=== PATIENT | female | born 1970 | race Caucasian/White ===

== ENCOUNTER 2017-07-02 12:58 | Observation (INO) ==
--- NOTE | 2017-07-02 13:34 | Emergency Department Report ---
Seizure HPI - General Chief Complaint: Seizure Stated Complaint: alchol tx Time Seen by Provider: 07/02/17 13:09 Source: patient, EMS Mode of arrival: EMS Limitations: no limitations - History of Present Illness HPI Narrative: Pt presents from rehab for alcohol dependance. Pt reports she has been drinking a pint plus beers daily for years. This is her first time to a rehab facility where she has been for 3 days. This morning staff walked into pts room to find her on the floor having convulsive like twitches. EMS reports pt did have a post ictal phase. Pt is alert and verbal appropriate on arrival and denies any history of seizures, street drug use or previous known withdrawal symptoms. She has no memory of the event or any activity just prior. MD complaint: possible seizure Onset (ago): minute(s) Description of Episode: tonic-clonic movement, post-event confusion Witnessed: yes - by other (rehab staff) Trauma: No Seizure History: none Place: other Possible Precipitating Event: alcohol withdrawal Associated symptoms: denies other symptoms - Related Data Home Medications Medication Instructions Recorded Confirmed Acetaminophen [Acetaminophen Extra 1,000 mg PO Q6H PRN 07/02/17 07/02/17 Strength] Fluoxetine HCl [Prozac] 40 mg PO DAILY 07/02/17 07/02/17 Gabapentin [Neurontin] 100 mg PO TID 07/02/17 07/02/17 Levothyroxine Sodium 100 mcg PO ACB 07/02/17 07/02/17 Metoprolol Tartrate 100 mg PO BID 07/02/17 07/02/17 Ondansetron HCl [Zofran] 4 mg PO Q4H PRN 07/02/17 07/02/17 Allergies Allergy/AdvReac Type Severity Reaction Status Date / Time Sulfa (Sulfonamide Allergy Mild Verified 07/02/17 13:12 Antibiotics) Review of Systems All systems: reviewed and negative except as stated Neurological: Reports: as per HPI Psychiatric: Reports: as per HPI PFSH Patient Stated Medical History Hypotension Yes Depression Yes Now No: pre menopause, lmp 3-4 months ago - Social History Smoking status: Current every day smoker Physical Exam - Limitations Limitations: no limitations - General General appearance: alert, in no apparent distress - Normal Exams: Head:: Normocephalic without trauma Eyes:: Pupils are PERRLA w/ EOMI Neck:: Full range of motion, without adenopathy Chest/Respirations:: Clear all zamudio, with good airflow, and symmetry bilaterally Cardiovascular:: Regular rate and rhythm, without murmur or gallop, Pulses 2+ all extremities, capillary refill, <2 seconds all extremities Abdomen:: Bowel sounds positive, soft, non-tender, non-distended Musculoskeletal:: No tenderness, or deformity noted, good range of motion, all extremities Integumentary:: No rashes Neurological:: Patient is alert, and oriented, cranial nerves, motor/sensory/ cerebellar, exams w/o gross deficits, to observation Psychiatric:: Patient exhibits, appropriate attention, emotion and affect Course Vital Signs Temperature 98.1 F 07/02/17 12:59 Pulse Rate 71 07/02/17 12:59 Respiratory Rate 22 07/02/17 12:59 Blood Pressure 184/106 H 07/02/17 12:59 Pulse Oximetry 98 07/02/17 12:59 Temperature 98.1 F 07/02/17 12:59 Pulse Rate 71 07/02/17 12:59 Respiratory Rate 22 07/02/17 12:59 Blood Pressure 184/106 H 07/02/17 12:59 Pulse Oximetry 98 07/02/17 12:59 Seizure - MDM Narrative Medical decision making narrative: Labs and CT results reviewed. Ct per Dr Medina with no acute findings. Dr Mesa notified of findings and pt status . Pt to be admitted observation and started on a withdrawal protocol. Pt notified of diagnostic results and plan. Pt is concerned her UDS was positive for meth. She denies any meth use and is concerned that there has been a mistake. Pt will contact [facility] to obtain belongings and hold bed. - Differential Diagnosis Likely: intractable seizure disorder, generalized seizure (alcohol withdrawal), new onset seizure - Lab Data Attestation: I reviewed the patient's lab results. Result diagrams: 07/02/17 13:21 07/02/17 13:21 Lab Results 07/02/17 07/02/17 07/02/17 Range/Units 13:21 13:21 14:05 WBC 6.5 (4.5-11.0) T/MM3 RBC 4.50 (4.00-5.20) M/MM3 Hgb 14.8 (12-16) GM/DL Hct 43.9 (36-46) % MCV 97.6 (80-100) UM3 MCH 32.9 (26-34) UUG MCHC 33.7 (31-37) GM/DL RDW Std Deviation 50.5 H (36.9-50.2) FL Plt Count 184 (130-400) T/MM3 MPV 11.3 (9.4-12.4) UM3 Immature Gran % (Auto) 0.3 (0.0-0.5) % Neut % (Auto) 55.8 (33-66) % Lymph % (Auto) 32.2 (23-45) % [place] % (Auto) 9.4 H (0-9.0) % Eos % (Auto) 1.7 (0-4) % Baso % (Auto) 0.6 (0-2) % Neut # (Auto) 3.6 (1.8-7.7) T/MM3 Lymph # (Auto) 2.1 (1-4.8) T/MM3 [place] # (Auto) 0.6 (0-0.8) T/MM3 Eos # (Auto) 0.1 (0-0.5) T/MM3 Baso # (Auto) 0.0 (0-0.2) T/MM3 Abs Immat Gran (auto) 0.02 (0.00-0.03) T/MM3 Turbidity < 20 (0-20) Sodium 139 (134-144) MEQ/L Potassium 2.9 L* (3.6-5) MEQ/L Chloride 101 (98-107) MEQ/L Carbon Dioxide 21 L (22-30) MEQ/L Anion Gap 17 H (5-15) MEQ/L BUN 5.0 L (7-17) MG/DL Creatinine 0.7 (0.7-1.2) MG/DL GFR Calculation 90 BUN/Creatinine Ratio 7 (6-26) RATIO Glucose 141 H (65-110) MG/DL Calculated Osmolality 267 (261-280) MOSM/KG Calcium 9.7 (8.4-10.2) MG/DL Total Bilirubin 0.40 (0.20-1.30) MG/DL Icterus Index < 2 (0-7) AST 66 H (14-36) U/L ALT 50 (9-52) U/L Alkaline Phosphatase 154 H (38-126) U/L Total Protein 8.2 (6.3-8.2) G/DL Albumin 4.9 (3.5-5.0) G/DL Globulin 3.3 (2.4-3.6) G/DL Albumin/Globulin Ratio 1.5 (1.1-2.2) RATIO Specimen Hemolysis < 15 (0-25) Ur Collection Type Urine, void-cc/notcc Urine Color Yellow (YELLOW) Urine Clarity Clear Urine pH 6.5 (5.0-8.0) Ur Specific Sullivan 1.010 L (1.015-1.025) Urine Protein Negative (NEGATIVE) Urine Glucose (UA) Negative (NEGATIVE) Urine Ketones Trace A (NEGATIVE) Urine Occult Blood Trace-intact (NEGATIVE) Urine Nitrate Negative (NEGATIVE) Urine Bilirubin Negative (NEGATIVE) Urine Urobilinogen 0.2 (NORMAL) EU/DL Ur Leukocyte Esterase Negative (NEGATIVE) Urinalysis Comment Microscopic not ind. Urine Opiates Screen ng/mL Ur Oxycodone Screen ng/mL Urine Methadone Screen ng/mL Ur Propoxyphene Screen ng/mL Ur Barbiturates Screen ng/mL U Tricyclic Antidepress ng/mL Ur Phencyclidine Scrn ng/mL Ur Amphetamines Screen ng/mL U Methamphetamines Scrn ng/mL U Benzodiazepines Scrn ng/mL Urine Cocaine Screen ng/mL U Cannabinoids Screen ng/mL Ur Drug Screen Confirm 07/02/17 07/02/17 Range/Units 14:05 14:05 WBC (4.5-11.0) T/MM3 RBC (4.00-5.20) M/MM3 Hgb (12-16) GM/DL Hct (36-46) % MCV (80-100) UM3 MCH (26-34) UUG MCHC (31-37) GM/DL RDW Std Deviation (36.9-50.2) FL Plt Count (130-400) T/MM3 MPV (9.4-12.4) UM3 Immature Gran % (Auto) (0.0-0.5) % Neut % (Auto) (33-66) % Lymph % (Auto) (23-45) % [place] % (Auto) (0-9.0) % Eos % (Auto) (0-4) % Baso % (Auto) (0-2) % Neut # (Auto) (1.8-7.7) T/MM3 Lymph # (Auto) (1-4.8) T/MM3 [place] # (Auto) (0-0.8) T/MM3 Eos # (Auto) (0-0.5) T/MM3 Baso # (Auto) (0-0.2) T/MM3 Abs Immat Gran (auto) (0.00-0.03) T/MM3 Turbidity (0-20) Sodium (134-144) MEQ/L Potassium (3.6-5) MEQ/L Chloride (98-107) MEQ/L Carbon Dioxide (22-30) MEQ/L Anion Gap (5-15) MEQ/L BUN (7-17) MG/DL Creatinine (0.7-1.2) MG/DL GFR Calculation BUN/Creatinine Ratio (6-26) RATIO Glucose (65-110) MG/DL Calculated Osmolality (261-280) MOSM/KG Calcium (8.4-10.2) MG/DL Total Bilirubin (0.20-1.30) MG/DL Icterus Index (0-7) AST (14-36) U/L ALT (9-52) U/L Alkaline Phosphatase (38-126) U/L Total Protein (6.3-8.2) G/DL Albumin (3.5-5.0) G/DL Globulin (2.4-3.6) G/DL Albumin/Globulin Ratio (1.1-2.2) RATIO Specimen Hemolysis (0-25) Ur Collection Type Urine Color (YELLOW) Urine Clarity Urine pH (5.0-8.0) Ur Specific Sullivan (1.015-1.025) Urine Protein (NEGATIVE) Urine Glucose (UA) (NEGATIVE) Urine Ketones (NEGATIVE) Urine Occult Blood (NEGATIVE) Urine Nitrate (NEGATIVE) Urine Bilirubin (NEGATIVE) Urine Urobilinogen (NORMAL) EU/DL Ur Leukocyte Esterase (NEGATIVE) Urinalysis Comment Urine Opiates Screen Negative ng/mL Ur Oxycodone Screen Negative ng/mL Urine Methadone Screen Negative ng/mL Ur Propoxyphene Screen Negative ng/mL Ur Barbiturates Screen Negative ng/mL U Tricyclic Antidepress Negative ng/mL Ur Phencyclidine Scrn Negative ng/mL Ur Amphetamines Screen Negative ng/mL U Methamphetamines Scrn Positive ng/mL U Benzodiazepines Scrn Positive ng/mL Urine Cocaine Screen Negative ng/mL U Cannabinoids Screen Negative ng/mL Ur Drug Screen Confirm Sent out - Radiology Data [facility] Radiology Attestation Statement: I reviewed the patient's radiology results. CT read per Dr Medina with no acute findings Disposition Clinical Impression: Alcohol withdrawal seizure Qualifiers: Complication of substance-induced condition: uncomplicated Qualified Code(s): F10.230 - Alcohol dependence with withdrawal, uncomplicated Benzodiazepine withdrawal Qualifiers: Complication of substance-induced condition: uncomplicated Qualified Code(s): F13.230 - Sedative, hypnotic or anxiolytic dependence with withdrawal, uncomplicated Disposition: [address] [facility] Condition: Improved Time of Disposition: 15:13 - Seen By: midlevel
--- OUTSIDE RECORDS SUMMARY | 2017-07-02 13:38 | External Medical Summary ---
:1970 Author Organization [facility] Address [address] [place] [address] Care Team Providers Name Role Phone Jesús Guzman Unavailable Unavailable PROBLEMS Type Condition ICD9-CM Code [id number] Code Onset Condition SNOMED Code Dates Status Problem Encounter for V58.69 Active 867649761 long-term (current) use of other medications Problem Other malaise and 780.79 Active 804995302 fatigue Problem Hyperlipidemia, 272.4 Active 86550801 Other and unspecified Problem Hypothyroidism, 244.9 Active 07199489 Unspecified Problem Bronchitis J40 Active 74332482 Problem Primary insomnia F51.01 Active 4058806 Problem Hypertension 401.9 Active 75336300 Problem Abdominal pain, 789.00 Active 63174086 unspecified site Problem Hormone imbalance 259.9 Active 016526476 Problem Palpitations 785.1 Active 71349570 ALLERGIES Unknown Allergies SOCIAL HISTORY No smoking Hx information available PLAN OF CARE VITAL SIGNS MEDICATIONS Medication Instructions Dosage Frequency Start Date End Date Duration Status Metoprolol 1 tablet 12h 30 days Active Tartrate 50 with food RESULTS No Results PROCEDURES No Known procedures IMMUNIZATIONS No Known Immunizations
--- OUTSIDE RECORDS SUMMARY | 2017-07-02 13:38 | External Medical Summary ---
:1970 Author Organization [employer] Care Team Providers Name Role Phone Jesús Guzman Provider Role Unavailable Allergies No Known Allergies Problems Problem Type Condition Code Onset Dates Condition Status Problem Hypothyroidism, Unspecified 244.9 Active Problem Palpitations 785.1 Active Problem Hypertension 401.9 Active Problem Hormone imbalance 259.9 Active Problem Hyperlipidemia, Other and 272.4 Active unspecified Problem Encounter for long-term (current) V58.69 Active use of other medications Problem Abdominal pain, unspecified site 789.00 Active Problem Other malaise and fatigue 780.79 Active Medications Medication Code System Code Instructions Start Date End Date Status Dosage Xanax [facility] [address] 0.25 MG Orally September 01 tablet -01 Twice a day 2013 Results No Known Results Summary Purpose eClinicalWorks Submission
--- OUTSIDE RECORDS SUMMARY | 2017-07-02 13:38 | External Medical Summary ---
:1970 Author Organization [employer] Care Team Providers Name Role Phone Jesús Guzman Provider Role Unavailable Allergies No Known Allergies Problems Problem Type Condition ICD-9 Code Onset Dates Condition Status Problem Hypertension 401.9 Active Problem Abdominal pain, unspecified site 789.00 Active Problem Palpitations 785.1 Active Problem Encounter for long-term V58.69 Active (current) use of other medications Problem Hypothyroidism, Unspecified 244.9 Active Problem Other malaise and fatigue 780.79 Active Problem Hyperlipidemia, Other and 272.4 Active unspecified Medications Medication Code System Code Instructions Start Date End Date Status Dosage Xanax [facility] [address] 0.25 MG Orally September 01, Active 1 tablet -01 Twice a day 2013 Results No Known Results Summary Purpose eClinicalWorks Submission
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
--- OUTSIDE RECORDS SUMMARY | 2017-07-02 13:38 | External Medical Summary ---
:1970 Author Organization [employer] Care Team Providers Name Role Phone Jesús Guzman Provider Role Unavailable Allergies No Known Allergies Problems Problem Type Condition Code Onset Dates Condition Status Assessment Sinusitis, unspecified 461.9 Active Problem Hypertension 401.9 Active Problem Abdominal pain, unspecified site 789.00 Active Problem Palpitations 785.1 Active Problem Encounter for long-term (current) V58.69 Active use of other medications Problem Hypothyroidism, Unspecified 244.9 Active Problem Other malaise and fatigue 780.79 Active Problem Hyperlipidemia, Other and 272.4 Active unspecified Medications Medication Code Code Instructions Start End Date Status Dosage System Date Ciprofloxacin HCl [facility] 37607-29 500 MG Orally December 17 tablet 37-01 every 12 hrs 2012 Results No Known Results Summary Purpose eClinicalWorks Submission
--- OUTSIDE RECORDS SUMMARY | 2017-07-02 13:38 | External Medical Summary ---
:1970 Author Organization [employer] Care Team Providers Name Role Phone Jesús Guzman Provider Role Unavailable Allergies, Adverse Reactions, Alerts Substance Reaction Event Type Sulfa hives Drug Allergy Problems Problem Type Condition ICD-9 Code Onset Dates Condition Status Assessment Hypothyroidism, Unspecified 244.9 Active Problem Hypothyroidism, Unspecified 244.9 Active Assessment Adult Wellness Exam V70.0 Active Assessment Hormone imbalance 259.9 Active Assessment Hypertension 401.9 Active Problem Palpitations 785.1 Active Problem Hypertension 401.9 Active Problem Hormone imbalance 259.9 Active Problem Hyperlipidemia, Other and 272.4 Active unspecified Problem Encounter for long-term V58.69 Active (current) use of other medications Problem Abdominal pain, unspecified site 789.00 Active Problem Other malaise and fatigue 780.79 Active Medications Medication Code Code Instructions Start End Status Dosage System Date Date Metoprolol [facility] 88058362601 50 Orally bid 1 TABLET Tartrate Levothyroxine [facility] 50608374590 100 TAKE ONE Sodium TABLET BY MOUTH EVERY DAY Xanax [facility] [address]-94 0.25 MG Orally [place] 1 tablet Twice a day 2013 Citalopram [facility] 75526473342 40 TAKE ONE Hydrobromide TABLET BY MOUTH EVERY DAY Procedures Procedure Coding System Code Date TSH CPT-4 96730 Jan 09, 2015 CBC CPT-4 25348 Jan 09, 2015 T4 CPT-4 21388 Jan 09, 2015 OFFICE VISITEST PT CPT-4 04765 Jan 09, 2015 FSH CPT-4 95016 Jan 09, 2015 LIPID PROFILE CPT-4 67393 Jan 09, 2015 COMP PROFILE CPT-4 15040 Jan 09, 2015 ESTRADIOL CPT-4 07992 Jan 09, 2015 URINALYSIS CPT-4 26559 Jan 09, 2015 Vital Signs Date/Time: Jan 09, 2015 Blood Pressure Systolic 120 mm Hg Height 62.2 in Weight 139 lbs BMI 25.26 Index Blood Pressure Diastolic 74 mm Hg Results Name Result Date Reference Range Unit Abnormality Flag CBC Summary Purpose eClinicalWorks Submission
--- OUTSIDE RECORDS SUMMARY | 2017-07-02 13:38 | External Medical Summary ---
:1970 Author Organization [facility] Address [address] [place] [address] Care Team Providers Name Role Phone Corrineyolanda Jesús Unavailable Unavailable PROBLEMS Type Condition ICD9-CM Code JYU26-NO Onset Condition SNOMED Code Code Dates Status Problem Generalized R10.84 Active 720879682 abdominal pain Problem Acquired E03.9 Active 386189348 hypothyroidism Problem Dysmenorrhea N94.6 Active 669285642 Problem Other fatigue R53.83 Active 14897902 Problem Palpitations R00.2 Active 71080956 Problem Essential I10 Active 02373382 hypertension Problem Bronchitis J40 Active 02184653 Problem Primary insomnia F51.01 Active 0329484 ALLERGIES Unknown Allergies SOCIAL HISTORY No smoking Hx information available PLAN OF CARE VITAL SIGNS MEDICATIONS Unknown Medications RESULTS No Results PROCEDURES No Known procedures IMMUNIZATIONS No Known Immunizations
--- OUTSIDE RECORDS SUMMARY | 2017-07-02 13:38 | External Medical Summary ---
:1970 Author Organization [employer] Care Team Providers Name Role Phone Jesús Guzman Provider Role Unavailable Allergies No Known Allergies Problems Problem Type Condition ICD-9 Code Onset Dates Condition Status Problem Hypothyroidism, [...] Start Date End Date Status Dosage Xanax [facility] [address] 0.25 MG Orally September 01 tablet -01 Twice a day 2013 Results No Known Results Summary Purpose eClinicalWorks Submission
--- OUTSIDE RECORDS SUMMARY | 2017-07-02 13:38 | External Medical Summary ---
:1970 Author Organization [facility] Address [address] [place] [address] Care Team Providers Name Role Phone Jesús Guzman Unavailable Unavailable PROBLEMS Type Condition ICD9-CM Code [id number] Onset Condition SNOMED Code Code Dates Status Problem Generalized R10.84 Active 810810820 abdominal pain Problem Acquired E03.9 Active 083803886 hypothyroidism Problem Dysmenorrhea N94.6 Active 538059857 Problem Other fatigue R53.83 Active 30674150 Problem Palpitations R00.2 Active 51932113 Problem Essential I10 Active 36160712 hypertension Problem Bronchitis J40 Active 12812856 Problem Primary insomnia F51.01 Active 7451623 ALLERGIES Substance Reaction Event Type Date Status Sulfa hives Drug Allergy Aug, Active SOCIAL HISTORY No smoking Hx information available PLAN OF CARE Activity Details Follow Up 1 Year Reason: VITAL SIGNS MEDICATIONS Medication Instructions Dosage Frequency Start End Duration Status Date Date Metoprolol Orally Twice a 1 TABLET 12h 30 days Active Tartrate 100 MG day Citalopram TAKE ONE 30 Active Hydrobromide 40 TABLET BY MOUTH EVERY DAY Levothyroxine TAKE ONE 30 Active Sodium 100 TABLET BY MOUTH EVERY DAY Xanax 0.25 MG Orally Twice a 1 tablet 12h Aug, as Active day 2013 needed RESULTS Name Result Date Reference Range CBC 2016-09-22 WBC 4.8 4.0-10.0 NE% 45.0 42.2-75.2 NE# 2.2 1.4-6.5 LY% 36.7 20.5-51.1 LY# 1.8 1.2-3.4 MO% 13.1 1.7-9.3 MO# 0.6 0.1-0.6 EO% 3.5 0.0-3.0 EO# 0.2 0.0-0.2 BA% 1.3 0.0-1.0 BA# 0.1 0.0-0.1 RBC 4.47 3.90-5.20 HGB 14.5 11.6-16.0 HCT 43.3 36.0-46.0 MCV 96.9 81.0-96.0 MCH 32.4 27.0-33.0 MCHC 33.5 32.0-35.0 RDW 13.8 11.5-15.5 PLT 193 130-400 MPV 10.8 8.9-12.7 COMPREHENSIVE CHEM PROFILE 2016-09-22 GLUCOSE 82 60-99 BUN 10 6-20 CREATININE 0.6 0.4-1.1 eGFR If Am 131 >60 eGFR If Non Am 108 >60 TOTAL BILI 0.37 0.00-1.00 SODIUM 139 133-145 POTASSIUM 4.3 3.3-5.1 CHLORIDE 99 96-108 CO2 28 23-31 CALCIUM 9.2 8.7-10.3 AST/SGOT 23 5-40 ALT/SGPT 22 5-40 ALK PHOS 134 34-114 TOTAL PROTEIN 7.1 5.9-8.4 ALBUMIN 4.3 3.2-5.2 GLOBULIN 2.8 2.0-4.4 LIPID PROFILE 2016-09-22 CHOLESTEROL 238 50-200 TRIGLYCERIDE 551 30-150 HDL-DIRECT 62 45-65 LDL-DIRECT 104 0-99 CHOL/HDL 3.8 4.0-6.7 T4 2016-09-22 T4 6.4 4.6-12.0 TSH 2016-09-22 TSH 0.27 0.40-5.00 ESTRADIOL 2016-09-22 ESTRADIOL 158.0 FSH 2016-09-22 FSH 27.8 PROCEDURES Procedure Date Ordered Related Diagnosis Body Site CBC September 22, 2016 COMP PROFILE September 22, 2016 PREV MED SEREST 40 September 22, 2016 TSH September 22, 2016 IMMUNIZATIONS No Known Immunizations
--- OUTSIDE RECORDS SUMMARY | 2017-07-02 13:38 | External Medical Summary ---
[...] Hyperlipidemia, Other and 272.4 Active unspecified Medications No Known Medications Results No Known Results Summary Purpose eClinicalWorks Submission
--- OUTSIDE RECORDS SUMMARY | 2017-07-02 13:38 | External Medical Summary ---
:1970 Author Organization [facility] Address [address] [place] [address] Care Team Providers Name Role Phone Jesús Guzman Unavailable Unavailable PROBLEMS Type Condition ICD9-CM Code [id number] Onset Condition SNOMED Code Code Dates Status Problem Generalized R10.84 Active 373043512 abdominal pain Problem Acquired E03.9 Active 930430470 hypothyroidism Problem Dysmenorrhea N94.6 Active 783259321 Problem Other fatigue R53.83 Active 85247222 Problem Palpitations R00.2 Active 63470858 Problem Essential I10 Active 11265411 hypertension Problem Bronchitis J40 Active 48710589 Problem Primary insomnia F51.01 Active 4328041 ALLERGIES Unknown Allergies SOCIAL HISTORY No smoking Hx information available PLAN OF CARE VITAL SIGNS MEDICATIONS Medication Instructions Dosage Frequency Start End Date Duration Status Date Xanax 0.25 MG Orally Twice a 1 tablet 12h 04 Aug, as needed Active day 2013 RESULTS No Results PROCEDURES No Known procedures IMMUNIZATIONS No Known Immunizations
--- OUTSIDE RECORDS SUMMARY | 2017-07-02 13:38 | External Medical Summary ---
:1970 Author Organization [facility] Address [address] [place] [address] Care Team Providers Name Role Phone Jesús Guzman Unavailable Unavailable PROBLEMS Type Condition ICD9-CM Code PMB98-VL Code Onset Condition SNOMED Code Dates Status Problem Encounter for V58.69 Active 989231574 long-term (current) use of other medications Problem Other malaise and 780.79 Active 280561570 fatigue Problem Hyperlipidemia, 272.4 Active 93524750 Other and unspecified Problem Hypothyroidism, 244.9 Active 96064216 Unspecified Problem Bronchitis J40 Active 91020974 Problem Primary insomnia F51.01 Active 5554916 Problem Hypertension 401.9 Active 54878144 Problem Abdominal pain, 789.00 Active 19895212 unspecified site Problem Hormone imbalance 259.9 Active 343755005 Problem Palpitations 785.1 Active 71978678 ALLERGIES Unknown Allergies SOCIAL HISTORY No smoking Hx information available PLAN OF CARE VITAL SIGNS MEDICATIONS Medication Instructions Dosage Frequency Start Date End Date Duration Status Metoprolol 1 tablet 12h 30 days Active Tartrate 50 with food RESULTS No Results PROCEDURES No Known procedures IMMUNIZATIONS No Known Immunizations
--- OUTSIDE RECORDS SUMMARY | 2017-07-02 13:38 | External Medical Summary ---
:1970 Author Organization [employer] Care Team Providers Name Role Phone Jesús Guzman Provider Role Unavailable Allergies No Known Allergies Problems Problem Type Condition Code Onset Dates Condition Status Assessment Palpitations 785.1 Active Problem Hypertension 401.9 Active Problem Abdominal pain, unspecified site 789.00 Active Problem Palpitations 785.1 Active Problem Encounter for long-term (current) V58.69 Active use of other medications Problem Hypothyroidism, Unspecified 244.9 Active Problem Other malaise and fatigue 780.79 Active Problem Hyperlipidemia, Other and 272.4 Active unspecified Medications Medication Code System Code Instructions Start End Date Status Dosage Date Xanax [facility] 45845-218 0.25 MG Orally September 01 1 tablet 01-29 Twice a day 2013 Metoprolol [facility] 40147-670 50 MG Orally bid 1 TABLET Tartrate 3- Results No Known Results Summary Purpose [employer]Clinical[employer] Submission
--- OUTSIDE RECORDS SUMMARY | 2017-07-02 13:38 | External Medical Summary ---
:1970 Author Organization [employer] Care Team Providers Name Role Phone Jesús Guzman Provider Role Unavailable Allergies No Known Allergies Problems Problem Type Condition Code Onset Dates Condition Status Problem Hypothyroidism, Unspecified 244.9 Active Problem Hyperlipidemia, Other and 272.4 Active unspecified Problem Encounter for long-term (current) V58.69 Active use of other medications Problem Primary insomnia F51.01 Active Problem Hormone imbalance 259.9 Active Problem Bronchitis J40 Active Problem Abdominal pain, unspecified site 789.00 Active Problem Other malaise and fatigue 780.79 Active Problem Palpitations 785.1 Active Problem Hypertension 401.9 Active Medications Medication Code System Code Instructions Start Date End Date Status Dosage Xanax [facility] [address] 0.25 MG Orally September 01 tablet -01 Twice a day 2013 Results No Known Results Summary Purpose eClinicalWorks Submission
--- OUTSIDE RECORDS SUMMARY | 2017-07-02 13:38 | External Medical Summary ---
[...] 785.1 Active Problem Hypertension 401.9 Active Medications No Known Medications Results No Known Results Summary Purpose [employer] Submission
--- OUTSIDE RECORDS SUMMARY | 2017-07-02 13:38 | External Medical Summary ---
[...] Start Date End Date Status Dosage Xanax [facility] [address] 0.25 MG Orally September 01 tablet -01 Twice a day [address] [facility] [address] 10 MG Orally Once Mar 07 tablet -23 a day 2014 Results No Known Results Summary Purpose Body [employer] Submission
--- OUTSIDE RECORDS SUMMARY | 2017-07-02 13:38 | External Medical Summary ---
:1970 Author Organization [facility] Address [address] [place] [address] Care Team Providers Name Role Phone Jesús Guzman Unavailable Unavailable PROBLEMS Type Condition ICD9-CM Code [id number] Onset Condition SNOMED Code Code Dates Status Problem Generalized R10.84 Active 124962732 abdominal pain Problem Acquired E03.9 Active 983378536 hypothyroidism Problem Dysmenorrhea N94.6 Active 869413800 Problem Other fatigue R53.83 Active 91145728 Problem Palpitations R00.2 Active 42123911 Problem Essential I10 Active 60058399 hypertension Problem Bronchitis J40 Active 26175495 Problem Primary insomnia F51.01 Active 5451462 ALLERGIES No Information SOCIAL HISTORY Never Assessed [...] coccyx pain from fall, x-ray not done, [facility] Medical History 09-22-16, physical, 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 Cholesterol 238, HDL 62 is mild high. CBC, comp and thyroid normal. Estrogen 158, FSH [address] Thomas, SUPERVISOR [employer]ACING.
--- OUTSIDE RECORDS SUMMARY | 2017-07-02 13:38 | External Medical Summary ---
:1970 Author Organization [facility] Address [address] [place] [address] Care Team Providers Name Role Phone Jesús Guzman Unavailable Unavailable PROBLEMS Type Condition ICD9-CM Code [id number] Onset Condition SNOMED Code Code Dates Status Problem Generalized R10.84 Active 320000386 abdominal pain Problem Acquired E03.9 Active 061458027 hypothyroidism Problem Dysmenorrhea N94.6 Active 118518004 Problem Other fatigue R53.83 Active 09888366 Problem Palpitations R00.2 Active 39870692 Problem Essential I10 Active 40881681 hypertension Problem Bronchitis J40 Active 11170197 Problem Primary insomnia F51.01 Active 7529950 ALLERGIES No Information SOCIAL HISTORY Never Assessed PLAN OF CARE VITAL SIGNS MEDICATIONS Medication Instructions Dosage Frequency Start End Date Duration Status Date Xanax 0.25 MG Orally UP TO TID 1 tablet Aug, as needed Active 2013 RESULTS No Results PROCEDURES No Known [...] coccyx pain from fall, x-ray not done, [facility] Medical History 09-22-16, physical, 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 Cholesterol 238, HDL 62 is mild high. CBC, comp and thyroid normal. Estrogen 158, FSH [address] Thomas, [employer]PARTMENT SUPERVISOR.
--- OUTSIDE RECORDS SUMMARY | 2017-07-02 13:38 | External Medical Summary ---
:1970 Author Organization [facility] Address [address] [place] [address] Care Team Providers Name Role Phone CorrineTrevor guerrerorey Unavailable Unavailable PROBLEMS Type Condition ICD9-CM Code [id number] Onset Condition SNOMED Code Code Dates Status Problem Bronchitis J40 Active 98064609 Problem Primary insomnia F51.01 Active 1402757 Problem Generalized R10.84 Active 947003931 abdominal pain Problem Acquired E03.9 Active 771964543 hypothyroidism Problem Palpitations R00.2 Active 07088241 Problem Essential I10 Active 50183227 hypertension ALLERGIES Unknown Allergies SOCIAL HISTORY No smoking Hx information available PLAN OF CARE VITAL SIGNS MEDICATIONS Medication Instructions Dosage Frequency Start Date End Date Duration Status Metoprolol Orally Twice a 1 TABLET 12h 30 days Active Tartrate 100 MG day RESULTS No Results PROCEDURES No Known procedures IMMUNIZATIONS No Known Immunizations
--- OUTSIDE RECORDS SUMMARY | 2017-07-02 13:39 | External Medical Summary ---
[...] Other malaise and fatigue 780.79 Active Medications No Known Medications Results No Known Results Summary Purpose [employer] Submission
--- OUTSIDE RECORDS SUMMARY | 2017-07-02 13:39 | External Medical Summary ---
[...] Start Date End Date Status Dosage Xanax [facility] [address] 0.25 MG Orally September 01 tablet -01 Twice a day 2013 Results No Known Results Summary Purpose eClinicalWorks Submission
--- OUTSIDE RECORDS SUMMARY | 2017-07-02 13:39 | External Medical Summary ---
:1970 Author Organization [facility] Address [address] [place] [address] Care Team Providers Name Role Phone Jesús Guzman Unavailable Unavailable PROBLEMS Type Condition ICD9-CM Code [id number] Onset Condition SNOMED Code Code Dates Status Problem Generalized R10.84 Active 320157693 abdominal pain Problem Acquired E03.9 Active 647648286 hypothyroidism Problem Dysmenorrhea N94.6 Active 483794867 Problem Other fatigue R53.83 Active 53098034 Problem Palpitations R00.2 Active 46297616 Problem Essential I10 Active 20811358 hypertension Problem Bronchitis J40 Active 37125757 Problem Primary insomnia F51.01 Active 5044587 ALLERGIES No Information SOCIAL HISTORY Never Assessed [...] Hospital Medical History 09-22-16, physical, 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 Cholesterol 238, HDL 62 is mild high. CBC, comp and thyroid normal. Estrogen 158, FSH [address] Thomas, ACETYLENE TORCH OPERATOR.
--- OUTSIDE RECORDS SUMMARY | 2017-07-02 13:39 | External Medical Summary | Continuity of Care Document ---
:1970 Author Organization [facility] Allergies Active Description Code Type Severity Reaction Onset Reported/ Identified Relationship Clinical to Patient Status Yes Sulfa Sulfa Drug Unknown RASH 06/14/2014 (Sulfonamide (Sulf Aller Antibiotics) onami gy de Antib iotic s) Medications There is no data. Problems Date Dx Attending Type Code Diagnosis Diagnosed By Coded 06/24/2017 F F10.20 Alcohol dependence, Chas oMrenoa uncomplicated 06/24/2017 F F41.9 Anxiety disorder, Lianna Moreno unspecified 06/25/2017 F F10.20 Alcohol dependence, Adilene Thackerapri D uncomplicated 06/25/2017 F F41.9 Anxiety disorder, Kirstie Quapri Lashae unspecified Procedures Code Description Performed By Performed On H2011 Crisis Josh Lianna 06/24/2017 Evaluation Results There is no data. Encounters ACCT No. Visit Discharge Status Pt. Type Provider Facility Loc./Unit Complaint Date/Time [id number] 08/25/2016 08/25/2016 DIS Emergency Lev PhippsEDW 258 17:29:00 18:58:00 , [facility] [id number] 06/14/2014 06/14/2014 DIS Emergency Eduardo PhippsEDW 019 09:42:00 11:45:00 , [facility] [id number] 06/24/2017 06/24/2017 CLS Outpatient 20:50:00 23:59:59
[2017-07-02] MEDS ORDERED: SALINE FLUSH 10ml SYRINGE ONE (13:44)
[2017-07-02] MEDS ORDERED: IOHEXOL 300mg/ml 50ml INJECTION ONE (13:44)
[2017-07-02] MEDS ORDERED: NS 1,000 ML IV ONE (14:20)
--- NOTE | 2017-07-02 14:28 | CT Scan Report ---
Indication: new onset seizure, ETOH withdrawl PROCEDURE: CT head/brain wo/w con: Encounter: Initial Comparison: None Technique: Axial CT images through the head were performed without and with IV contrast. Iterative Reconstruction dose reducing technique was utilized. Contrast: Omnipaque 300 50mL FINDINGS: The ventricles are of normal size, shape, and contour for the patient's age. The brainstem, cerebellum, and cerebral hemispheres have a normal morphology and CT attenuation. No hemorrhage, mass effect, mass lesions, or edema is evident. No areas of abnormal enhancement are seen. The visualized portions of the skull base, sinuses, and calvarium demonstrate no abnormality. IMPRESSION: Unremarkable head CT for the patient's age, both before and after contrast. .
[2017-07-02 16:23] VITALS: BMI 23.1
[2017-07-02 16:37] VITALS: RESP 16
[2017-07-02] MEDS ORDERED: ACETAMINOPHEN 500 MG TABLET PO PRN (16:37)
--- NOTE | 2017-07-02 16:48 | History & Physical Report ---
History of Present Illness Date: 07/02/17 Chief complaint: seizure HPI: Patient is a 47 year old female who presents to the ED per EMS due to a seizure she experienced while in alcohol rehabilitation at [facility]. She checked herself into alcohol rehabilitation on June 30. Her last drink was June 29. She also stopped taking Xanax that day as well. She reports feeling fine yesterday and today. She felt like right before the seizure she had a feeling in her head that "just didn't feel right." That was the last thing she remembered until she woke up with the [facility] nurse asking her if she was ok. She reports that they told her the seizure lasted approximately 2 minutes and that her lips turned blue. The EMS staff reports that she was postictal for a while. She has no history of seizure disorder. She does have a brother who has a seizure disorder which started in first grade. She has quit alcohol in the past and never had any withdrawal symptoms. She is concerned because her urine drug screen in the ER was positive for meth. She reports she has never used meth and her drug screen at [facility] 3 days ago was not positive for meth. Suspect this is a false positive. Her labs were essentially negative except potassium at 2.9. She was replaced with 40 mEq of potassium while in ER. Review of Systems All systems PM: 10-point ROS was reviewed, no additional remarkable complaints except (tongue pain/swelling) Review of systems: Pt reports she currently feels fine other than pain in her tongue where she bit it during her seizure LMP 3-4 months ago. States she is perimenopausal. 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 Jesús Guzman-PCP Medications Home Medications Medication Instructions Recorded Confirmed Type Acetaminophen [Acetaminophen Extra 1,000 mg PO Q6H PRN 07/02/17 07/02/17 History Strength] Fluoxetine HCl [Prozac] 40 mg PO DAILY 07/02/17 07/02/17 History Gabapentin [Neurontin] 100 mg PO TID 07/02/17 07/02/17 History Levothyroxine Sodium 100 mcg PO ACB 07/02/17 07/02/17 History Metoprolol Tartrate 100 mg PO BID 07/02/17 07/02/17 History Ondansetron HCl [Zofran] 4 mg PO Q4H PRN 07/02/17 07/02/17 History Allergies Allergy/AdvReac Type Severity Reaction Status Date / Time Sulfa (Sulfonamide Allergy Mild Verified 07/02/17 13:12 Antibiotics) Exam Vital Signs: Temperature 98.1 F 07/02/17 12:59 Pulse Rate 66 07/02/17 16:36 Respiratory Rate 16 07/02/17 16:36 Blood Pressure 145/99 H 07/02/17 16:36 Pulse Oximetry 97 07/02/17 16:36 Height/Weight/BMI: Height 1.57 m Weight 57.3 kg Body Mass Index 23.1 - Constitutional Present: no acute distress, well nourished, well developed - Routine HEENT Exam Head: Present: normocephalic, atraumatic Eye: Present: EOMI, PERRL ENT: Present: mucous membranes moist, oropharynx clear Comments: Swelling and purplish discoloration to the left side of the tongue - Routine Neck Exam Absent: supple, lymphadenopathy, thyromegaly - Routine Respiratory Exam Present: CTA bilaterally. Absent: wheezes - Routine Cardiovascular Exam Present: RRR, no murmur - Routine Abdominal Exam Present: soft, normoactive bowel sounds. Absent: tenderness, distended - Routine Extremities Exam Present: no edema, normal capillary refill - Routine Skin Exam Present: dry, warm - Routine Neurological Exam Present: alert, oriented X3, CN II-XII intact Slight twitch to the right upper lip at times. - Routine Psychiatric Exam Present: normal affect, cooperative Results - Labs CBC & Chem 7: 07/02/17 13:21 07/02/17 13:21 Labs: Urinalysis essentially negative other than trace ketones. Drug screen positive for methamphetamines and benzodiazepines. (Patient denies any recent use of meth and reports drug screen at a rehabilitation negative for meth.) Assessment and Plan (1) Alcohol withdrawal seizure Current visit: Yes Status: Acute (2) Benzodiazepine withdrawal Current visit: Yes Status: Acute Assessment and Plan: Assessment Seizure-likely related to alcohol and/or benzodiazepine withdrawal Hypokalemia (2.9)-present on admission Hypertension Depression Hypothyroidism Alcohol abuse Plan Admit patient for observation under the hospitalist service, Dr. Mesa attending. Patient requests as little medication/workup/treatment as possible as she has no insurance and is self-pay. She was given 40 mEq of potassium in the ER. Will repeat another 20 mEq at supper time and repeat BMP in the a.m. to follow her hypokalemia Continue supplemental thiamine and folate. Continue regular home meds of fluoxetine and levothyroxine and metoprolol. Lorazepam and Librium available as needed for seizure or withdrawal symptoms Seizure precautions She wishes to be a full code. She lists her mom as her DPOA/H-although mentions that she's not to have any contact with her family while she is in rehabilitation. She gives permission for us to discuss her care with Brianne, her nurse at [facility]. Case discussed with Dr. Mesa and nursing staff. Care to return to Dr. Guzman upon dismissal. - Physician Narrative Physician: Sasha Dave MD Narrative: Date: 07/02/17 Time: 1999 I have independently evaluated and examined this patient. I reviewed the chart, the patient's history, and the SUBSTATION DESIGNER/PA's documented findings as above. We discussed and formulated the assessment and plan as above with additions as below: Elysia presents after a witnessed seizure-first event-with injury to her tongue but no incontinence. She is not aware of any injuries to her extremities. She previously drank heavily drinking both beer and vodka typically having at least 6 drinks of vodka daily with last use 4 days ago at which time she also discontinued Xanax 0.25 mg twice a day. She has developed a fine tremor in the past 24 hours and is felt she was having difficulty following conversations and concentrating but has not been aware of any overt alcohol withdrawal symptoms until the seizure occurred. She's had a number of falls previously while intoxicated with resultant bruising on her torso and some residual rib pain. She denies any acute symptoms the on swelling and pain in her tongue at the present time. NAD, alert Very fine tremor with arms outstretched Left lateral aspect of tongue with extensive bruising and some maceration Respirations nonlabored, good airflow, breath sounds clear, regular rhythm, S1 and S2, abdomen benign MAEW Extensive bruising over right lateral torso, scattered bruises on the extremities Alcohol/benzoyl withdrawal seizure, fine tremor compatible with alcohol withdrawal-may require short benzo taper if permissible at [facility] Monitor closely overnight, potassium replaced earlier-reassess in a.m. CT head reviewed per myself-unremarkable; labs notable only for potassium of 2.9 and modest elevation of AST. Care transferred from Dr. Mesa to myself, events earlier in the day discussed with him. Dr. Miner will assume care in am in my absence. Hospital Course Summary Disclaimer: The visit summary below is not to be considered part of the above Progress Note. Hospital Course: 07/02/17 - Hospitalization for observation Admit patient for observation under the hospitalist service, Dr. Mesa attending. Patient requests as little medication/workup/treatment as possible as she has no insurance and is self-pay. She was given 40 mEq of potassium in the ER. Will repeat another 20 mEq at supper time and repeat BMP in the a.m. to follow her hypokalemia Continue supplemental thiamine and folate. Continue regular home meds of fluoxetine and levothyroxine and metoprolol. Lorazepam and Librium available as needed for seizure or withdrawal symptoms Seizure precautions She wishes to be a full code. She lists her mom as her DPOA/H-although mentions that she's not to have any contact with her family while she is in rehabilitation. She gives permission for us to discuss her care with Brianne, her nurse at [facility]. Case discussed with Dr. Mesa and nursing staff. Care to return to Dr. Guzman upon dismissal.
[2017-07-02] MEDS: ONDANSETRON 4 MG TABLET PO PRN (17:53)
[2017-07-02] MEDS: FOLIC ACID 1 MG TABLET PO SCH (18:16)
[2017-07-02] MEDS: MULTI-VITAMIN + MINERAL TABLET PO SCH (18:17)
[2017-07-03 01:20] VITALS: O2SAT 100
[2017-07-03] MEDS ORDERED: LEVOTHYROXINE 100 MCG TABLET PO SCH (06:30)
[2017-07-03 07:30] VITALS: BP 150/101; PULSE 60; TEMP 96.8
[2017-07-03] MEDS: ONDANSETRON 4 MG TABLET PO PRN (08:18)
[2017-07-03] MEDS: MULTI-VITAMIN + MINERAL TABLET PO SCH (08:19)
[2017-07-03] MEDS: FOLIC ACID 1 MG TABLET PO SCH (08:19)
[2017-07-03] MEDS ORDERED: NON-FORMULARY MEDICATION 1 EACH EACH (Fluoxetine Hcl [Prozac] 40 MG) PO SCH (09:00)
[2017-07-03] MEDS ORDERED: FLUoxetine 20 MG CAPSULE PO SCH (09:00)
--- NOTE | 2017-07-03 13:19 | Discharge Summary ---
Discharge Information Date of admission: 07/02/17 15:08 Anticipated date of discharge: 07/03/17 Attending Physician: Sasha Dave MD Primary care physician: Jesús Guzman MD - Discharge Diagnosis (1) Alcohol withdrawal seizure Status: Acute (2) Benzodiazepine withdrawal Status: Acute Seizure likely due to ETOH and benzo withdrawal ETOHism Benzodiazepine dependence hypokalemia HTN Hypothyroidism - Procedures Procedures: CT of the head 07/02/17 IMPRESSION: Unremarkable head CT for the patient's age, both before and after contrast. - Laboratory Labs: 07/03/17 04:58 07/03/17 04:58 History of Present Illness HPI: Patient is a 47 year old female who presents to the ED per EMS due to a seizure she experienced while in alcohol rehabilitation at [facility]. She checked herself into alcohol rehabilitation on June 30. Her last drink was June 29. She also stopped taking Xanax that day as well. She reports feeling fine yesterday and today. She felt like right before the seizure she had a feeling in her head that "just didn't feel right." That was the last thing she remembered until she woke up with the [facility] nurse asking her if she was ok. She reports that they told her the seizure lasted approximately 2 minutes and that her lips turned blue. The EMS staff reports that she was postictal for a while. She has no history of seizure disorder. She does have a brother who has a seizure disorder which started in first grade. She has quit alcohol in the past and never had any withdrawal symptoms. She is concerned because her urine drug screen in the ER was positive for meth. She reports she has never used meth and her drug screen at [facility] 3 days ago was not positive for meth. Suspect this is a false positive. Her labs were essentially negative except potassium at 2.9. She was replaced with 40 mEq of potassium while in ER. Objective Vital signs: Temperature 96.8 F 07/03/17 07:28 Pulse Rate 60 07/03/17 07:28 Respiratory Rate 16 07/03/17 07:28 Blood Pressure 150/101 H 07/03/17 07:28 Pulse Oximetry 100 07/03/17 07:28 Height/Weight/BMI: Height 1.57 m Weight 57.3 kg Body Mass Index 23.1 Comments: Gen: alert and oriented. NAD. Pleasant and conversive Skin: warm and dry. HEENT: NC/AT PERRL, EOMI, Sclera,lids and conjunctiva wnl. MMM. OP clear. Neck: supple. No JVD. Carotids 2+ without bruits Lungs: clear. No rales, rhonchi or wheezes CV: regular rate and rhythm. No murmur, rub or gallop No edema. Pedal pulses are good Abd: soft. +BS. NT/ND MS: Good strength and ROM. Neuro: no focal deficit. Hospital Course This is a general summary of the patient's hospital course. For more details refer to the complete medical record. Hospital course: 07/02/17 - Hospitalization for observation Admit patient for observation under the hospitalist service, Dr. Mesa attending. Patient requests as little medication/workup/treatment as possible as she has no insurance and is self-pay. She was given 40 mEq of potassium in the ER. Will repeat another 20 mEq at supper time and repeat BMP in the a.m. to follow her hypokalemia Continue supplemental thiamine and folate. Continue regular home meds of fluoxetine and levothyroxine and metoprolol. Lorazepam and Librium available as needed for seizure or withdrawal symptoms Seizure precautions She wishes to be a full code. She lists her mom as her DPOA/H-although mentions that she's not to have any contact with her family while she is in rehabilitation. She gives permission for us to discuss her care with Brianne, her nurse at [facility]. Case discussed with Dr. Mesa and nursing staff. Care to return to Dr. Guzman upon dismissal. 07/03/17 Pt feeling well today. No complaints. She denies lightheadedness of dizziness. She denies CARMONA. No SOA, MEZA. No CP or Palp. No N/V/D/C. She has been walking without issues. She is ready to return to detox rehab. We will give a titrating dose of Serax which was okayed by the rehab facility. Her BP has been elevated so Lisinopril was added to her medications. She will need BMP for followup in a week to follow up with her hypokalemia and to check renal function after initiation of the MARTÍNEZ I. Time spent with patient: 25 - 35 minutes Resuscitation Status: Full Code Discharge Plan - Discharge Disposition Discharge Date: 07/03/17 (Pt going back to [facility] rehab for detox) Disposition: 04 To [facility] Home/Facility *Condition: Improved Reason For Visit (Visit label in EMR): seizure, alcohol withdrawal - Discharge Medications *Discharge Medications: New FLUoxetine [Prozac] 40 mg PO DAILY #30 cap Folic Acid [Folate] 1 mg PO DAILY tablet Lisinopril [Prinivil] 5 mg PO DAILY #30 tab Oxazepam [Serax] 10 mg PO HS #3 capsule Oxazepam [Serax] 10 mg PO Q12HR #4 capsule Oxazepam [Serax] 10 mg PO Q8H #6 capsule Oxazepam [Serax] 15 mg PO Q8HR #5 capsule Multi-Vitamin + Mineral [Therapeutic - M] 1 tab PO DAILY tablet Thiamine HCl 100 mg PO DAILY tablet Continue Ondansetron HCl [Zofran] 4 mg PO Q4H PRN PRN Reason: Nausea &/Or Vomiting Metoprolol Tartrate 100 mg PO BID Levothyroxine Sodium 100 mcg PO ACB Gabapentin [Neurontin] 100 mg PO TID Fluoxetine HCl [Prozac] 40 mg PO DAILY Acetaminophen [Acetaminophen Extra Strength] 1,000 mg PO Q6H PRN PRN Reason: Pain - Discharge Packet/Instructions *Diet: Regular *Activity: as tolerated *Pain Management/Treatment: N/A *Wound Care: N/A *Expected Signs/Symptoms: N/A *Notify Physician if: Weakness, increased tremors, lightheadedness *During Business Hours Contact: PCP *After Business Hours Contact: ER *Pending Lab/Results: No Pending Lab - Referrals/Follow Up *Referrals/Follow Up: Jesús Guzman MD [Family Provider] - - Patient Handouts - Dismissal Complete Discharge Instructions are:: Complete Physician Narrative - Narrative Attestation Narrative: Date: 07/03/17 Time: 9226
[2017-07-03] MEDS ORDERED: LISINOPRIL 5 MG TABLET PO SCH (13:30)
[2017-07-03] MEDS ORDERED: OXAZEPAM 15 MG CAPSULE PO SCH (17:00)
[2017-07-05] MEDS ORDERED: OXAZEPAM 10 MG CAPSULE PO SCH ×2 (09:00→17:00)
[2017-07-07] MEDS ORDERED: OXAZEPAM 10 MG CAPSULE PO SCH (09:00)
[2017-07-08] MEDS ORDERED: OXAZEPAM 10 MG CAPSULE PO SCH (09:00)
[2017-07-09] MEDS ORDERED: OXAZEPAM 10 MG CAPSULE PO SCH (21:00)
== END 2017-07-03 15:45 ==
LOC: MED 12:58 → ED 12:58 → SUATTDRO 15:08 → MED 16:08
PROVIDERS: ADMIT Hospitalist; ATTEND Internal Medicine